=== PATIENT | female | born 1965 | race African-American/Black ===

== ENCOUNTER 2017-02-09 08:34 | Inpatient (IN) ==
[2017-02-09 09:12] LABS: URINE CULTURE PL NEEDED? NO
[2017-02-09 09:22] LABS: BILIRUBIN URINE NEGATIVE (NEGATIVE); BLOOD URINE NEGATIVE (NEGATIVE); CLARITY CLEAR (CLEAR); COLOR YELLOW; GLUCOSE URINE NEGATIVE (NEGATIVE); LEUKOCYTES URINE NEGATIVE (NEGATIVE); NITRITE URINE NEGATIVE (NEGATIVE); PROTEIN URINE NEGATIVE (NEGATIVE); SP GRAVITY URINE 1.015; UROBILINOGEN URINE NORMAL
[2017-02-09 09:29] LABS: URINE EPITHELIAL CELLS <10 /HPF (<10); URINE SOURCE CLEAN CATCH; URINE WBC <10 /HPF (<10)
[2017-02-09] MEDS ORDERED: APRESOLINE IV ONE (10:17)
[2017-02-09 10:39] LABS: BASO% 0.7 % (0.0-0.8); EOS# 0.17 X1000 (0.0-0.7); EOS% 3.1 % (0.0-10.0); HEMATOCRIT 37.3 % (37.0-47.0); IMM GRAN# 0.01 X1000 (0.0-0.04); IMM GRAN% 0.2 % (0.0-0.5); LYMPH# 1.47 X1000 (1.2-3.4); LYMPH% 27.2 % (20.5-51.1); MANUAL DIFF NEEDED? NO; MCHC 32.2 g/dL (33-37); MCV 74.7 FL (81-99); MONO# 0.58 X1000 (0.11-0.59); MONO% 10.7 % (1.7-9.3); MPV 9.8 FL (7.4-10.4); NEUT% 58.1 % (42.2-75.2); PLT 273 X1000 (130-400); RBC 4.99 XMIL (4.2-5.4)
--- NOTE | 2017-02-09 10:53 | Diag Imaging Result Doc PS360 ---
EXAM: CHEST-PORTABLE HISTORY: Cough TECHNIQUE: Portable COMPARISON: None. FINDINGS: The lungs are well expanded. The heart is enlarged. The vessels are not distended. No pneumonia. No pleural effusions identified. Moderate scoliosis. IMPRESSION: Cardiomegaly. No pneumonia. Electronically signed by Adam Partida 02/09/2017 10:51 AM
[2017-02-09 10:55] LABS: HEMOGLOBIN A1C 5.7 % (4.8-6.0)
[2017-02-09 10:56] LABS: AGAP 10; ALBUMIN 3.8 g/dL (3.5-5.0); ALKALINE PHOSPHATASE 124 U/L (32-104); BUN 11 mg/dL (8-22); CALCIUM 9.1 mg/dL (8.8-10.2); CHLORIDE 104 mmol/L (98-107); COSMO 275; GOT 17 U/L (10-30); GPT 16 U/L (10-36); POTASSIUM 3.3 mmol/L (3.5-5.1); SODIUM 138 mmol/L (136-145); TCO2 24 mmol/L (25-35); TOTAL PROTEIN 9.6 g/dL (6.3-8.3)
[2017-02-09] MEDS ORDERED: LABETALOL IV ONE (11:43)
--- NOTE | 2017-02-09 11:55 | PROVIDER DOCUMENTATION ---
This chart was entered by Lida Martel Scribe, acting as scribe for Kimi Bowers MD. HPI-General Adult - General Chief Complaint: Request RX Stated Complaint: DIZZINESS Time Seen by Provider: 02/09/17 09:51 Source: patient Allergies/Adverse Reactions: Patient Allergies Allergy/AdvReac Type Severity Reaction Status Date / Time No Known Allergies Allergy Verified 02/09/17 08:49 Home Medications: Home Medication List Medication Instructions Recorded Confirmed Last Taken Type Hydrochlorothiazide 25 mg DAILY 02/09/17 02/09/17 Unknown History - History of Present Illness -Gen Adult Nature of Presenting Problems: 51 year old F presents to the ED with a cc of out of blood pressure medication and urinary frequency. Pt states that she has been out of her medications x3 weeks. Location of Pain/Injury: reports: none Pain Radiation: reports: no radiation Quality of Pain: reports: none Severity: reports: mild Onset/Duration: reports: other (3 weeks) Timing: reports: still present Context/Activities at Onset: reports: none Modifying Factors: improves with: nothing Associated Symptoms: reports: genitourinary problems Similar Symptoms Previously?: No Recently seen or treated by another doctor?: No Review of Systems - Adult - REVIEW OF SYSTEMS - ADULT Constitutional: denies: chills, fever Eyes: reports: no symptoms reported Ears, Nose, Mouth & Throat: reports: no symptoms reported Cardiovascular: denies: chest pain, palpitations Respiratory: denies: cough, shortness of breath Gastrointestinal: denies: abdominal pain, nausea Genitourinary: reports: frequency. denies: dysuria Musculoskeletal: reports: no symptoms reported Integumentary: reports: no symptoms reported Neurological: reports: no symptoms reported Psychiatric: reports: no symptoms reported Endocrine: reports: no symptoms reported Hematologic/Lymphatic: reports: no symptoms reported Allergic/Immunologic: reports: no symptoms reported All Other Systems: Reviewed and Negative Past History - Adult - PAST MEDICAL HISTORY-ADULT Review of Records: reports: Nursing Assessment Review, Medications Reviewed Major Childhood Illnesses: reports: denies history Cardiovascular: reports: HTN Respiratory: reports: denies history Gastrointestinal: reports: denies history Obstetrical/Gynecological: reports: denies history Genitourinary: reports: denies history Musculoskeletal: reports: arthritis, chronic pain Neurological: reports: denies history Endocrine/Immune: reports: denies history Other Conditions: reports: denies history - PRIOR SURGERIES/PROCEDURES Surgical/Procedure History: reports: none - IMMUNIZATION STATUS Childhood Immunizations: See Nurse Assessment Flu Vaccine: See Nurse Assessment - FAMILY HISTORY Family History: reviewed, not pertinent - SOCIAL HISTORY Smoking: non-smoker Substance Use: none/never Alcohol Use Frequency: never Living Situation: family Physical Exam-General - PHYSICAL EXAM-ADULT Initial Vital Signs Reviewed: Yes - CONSTITUTIONAL General Appearance: appears well, alert, no apparent distress - RESPIRATORY Respiratory: chest non-tender, lungs clear, normal breath sounds - CARDIOVASCULAR Cardiovascular: normal peripheral pulses, regular rate, rhythm, no edema - GASTROINTESTINAL (ABDOMEN) Abdominal Exam: normal bowel sounds, non tender, soft - MUSCULOSKELETAL Extremity: normal inspection, no pedal edema - SKIN Integumentary: normal color, normal turgor, warm/dry - PSYCHIATRIC Psych/Mental Status: normal mood/affect, normal thought content, normal thought process, oriented x 3 Progress - PLAN OF CARE/RESULTS Progress/Plan/Lab Results: Vital Signs - 8 hr 02/09/17 08:44 Temperature 97 F L Pulse Rate 55 L Respiratory Rate 20 Blood Pressure 190/86 O2 Sat by Pulse Oximetry 98 Laboratory Results - last 24 hr 02/09/17 09:05 Urine Source CLEAN CATCH Urine Color YELLOW Urine Clarity CLEAR Urine pH 6.0 Ur Specific [place] 1.015 Urine Protein NEGATIVE Urine Ketones NEGATIVE Urine Blood NEGATIVE Urine Nitrite NEGATIVE Urine Bilirubin NEGATIVE Urine Urobilinogen NORMAL Urine Microscopic RBC Not Reportable Urine WBC NEGATIVE Urine Microscopic WBC <10 Ur Epithelial Cells <10 Urine Glucose NEGATIVE Orders Category Date Time Status urinalysis [URINALYSIS PL W/POSS RFLX CULT] [URINALYSIS Lab 02/09/17 09:05 Completed ] Stat Result Diagrams: 02/09/17 10:30 02/09/17 10:30 - REASSESSMENT Reassessment #1 Time Reassessed: 11:53 Status: worsening (Pt's BP increased after IV Hydralazine. IV Labetalol given.) - EKG 1 Time of EKG reading by physician:: 10:24 EKG Read and Signed by:: Kimi Bowers EKG Interpretation (*Must complete 3 of following elements*): Abnormal Rate: 58 Rhythm: sinus bradycardia QRS: LVH - XRAY 1 XRAY Study: Chest Impression: Normal (FINDINGS: The lungs are well expanded. The heart is enlarged. The vessels are not distended. No pneumonia. No pleural effusions identified. Moderate scoliosis. IMPRESSION: Cardiomegaly. No pneumonia- -Dr. Partida(radiologist)), Abnormal (Enlarged heart) - CONSULTS/PCP/HOSPITALIST Notification #1 *Consult/PCP/Hospitalist*: Dr. Angeles Time Discussed: 11:52 Consult Disposition: Will see in ED, Admit Departure - Departure Date of Disposition Decision: 02/09/17 Time of Disposition Decision: 11:52 DIAGNOSIS: Hypertensive urgency, Enlarged heart Disposition: ADMITTED INPATIENT 09 Certified Medical Emergency: Emergent Condition: Stable Referrals and Follow-Ups: None,PCP [Primary Care Provider] - - Critical Care Note This patient required my direct & personal management of CC.: Yes Attestation - Physician/ RADHA Attestation Patient care was provided by Advanced Practice Provider:: No The physician spent face to face time with patient:: Yes Advanced Practice Provider documentation review:: Supervising physician onsite and consulted in the evaluation and care of this patient. The physician did have a face to face encounter with the patient. This chart was documented by the indicated scribe, (Lida Martel Scribe) and accurately reflects the services I performed and decisions made by me, Kimi Bowers MD, as attested by the provider's signature.
[2017-02-09] MEDS ORDERED: KLOR-CON PO ONE (13:39)
--- NOTE | 2017-02-09 13:56 | EKG Report ---
Test Performed on : 02/09/2017 10:24:34 AM Test Reason : Re-Ordered Blood Pressure : / mmHG Vent. Rate : 058 BPM Atrial Rate : 058 BPM P-R Int : 158 ms QRS Dur : 096 ms QT Int : 420 ms P-R-T Axes : 023 -20 016 degrees QTc Int : 412 ms Sinus bradycardia. Minimal voltage criteria for LVH, may be normal variant Cannot rule out Anterior infarct , age undetermined Abnormal ECG No previous ECGs available Unconfirmed Result
--- NOTE | 2017-02-09 16:31 | HISTORY AND PHYSICAL ---
PRIMARY CARE PHYSICIAN: None. CHIEF COMPLAINT: Dizziness, lightheaded and states she has been out of her blood pressure medicine for 3 weeks. HISTORY OF PRESENTING ILLNESS: This is a 51-year-old female who presented to [facility] ER with complaints of dizziness and lightheadedness. States she has been out of her blood pressure medicine for approximately 3 weeks. States that she does not have a primary care physician but occasionally goes to see Dr. Zaman to get her hydrochlorothiazide. There was some confusion on that. I am not really sure if he is truly her primary care or not. When she arrived to the emergency room she had a blood pressure of 190/86, went up to 164/121, she received hydralazine 20 mg IV x1 and labetalol 20 mg IV x1 in the emergency room. She is being admitted for further evaluation and treatment. She denies any chest pain. She has some shortness of breath occasionally, and denies any blurred vision or headache at this time. PAST MEDICAL HISTORY: Hypertension and arthritis. PAST SURGICAL HISTORY: None. FAMILY HISTORY: Noncontributory. SOCIAL HISTORY: She currently lives with her family. Denies any tobacco, alcohol, or illicit drug use. ALLERGIES: She has no known drug allergies. HOME MEDICATIONS: She takes hydrochlorothiazide 25 mg p.o. daily. Again, she has been out of this medication for 3 weeks. LABORATORY DATA: Showed a white blood cell count of 5.40, hemoglobin of 12, hematocrit 37.3. Platelets 273,000. Sodium 138, potassium 3.3, chloride 104, CO2 24, BUN of 11, creatinine 0.7, glucose of 95. Hemoglobin A1c was 5.7. Troponin less than 0.010 with a proBNP of 45. Urinalysis was negative. Chest x-ray showed cardiomegaly and no pneumonia. REVIEW OF SYSTEMS: She denied any fever, chills, blurred vision. She was positive for dizziness and lightheadedness. Denied any chest pain, coughing, was positive for some mild shortness of breath. Denied any abdominal pain, constipation, diarrhea, burning or hurting with urination. PHYSICAL EXAMINATION: VITAL SIGNS: On arrival, she had a temperature of 97 degrees, a pulse of 55, respirations 20, blood pressure was 190/86. Currently, her blood pressure is down to 143/80, saturating 100% on room air. GENERAL: This is a 51-year-old female who is sitting on the side of the bed and answers questions appropriately. HEENT: Normocephalic and atraumatic. Pupils are equal, round, reactive to light. Extraocular movements are intact. The oropharynx and nares are clear. NECK: Supple. LUNGS: Clear to auscultation bilaterally with equal lung expansion and chest wall movement. HEART: Regular rate and rhythm. No murmurs, rubs, or gallops. ABDOMEN: Soft, nontender, nondistended. Bowel sounds are present x4 quadrants. EXTREMITIES: There is no clubbing, cyanosis, or edema. NEUROLOGICAL: The cranial nerves 2-12 appear grossly intact. ASSESSMENT: 1. Accelerated hypertension. 2. Some mild hypokalemia. 3. Medical noncompliance. 4. Arthritis. PLAN: She has been admitted to the medical unit at [place]. Placed on a healthy heart diet. We will start her on some Norvasc 5 mg p.o. daily. We will continue her hydrochlorothiazide and will supplement her potassium with 40 mEq x1 today and recheck a CBC, BMP in the a.m. Dictated by ELIE Patton for Keon Angeles MD cc: ELIE Patton MD
[2017-02-10 06:25] LABS: BASO% 0.5 % (0.0-0.8); EOS# 0.13 X1000 (0.0-0.7); EOS% 2.2 % (0.0-10.0); HEMATOCRIT 34.4 % (37.0-47.0); HEMOGLOBIN 11.1 g/dL (12.0-16.0); IMM GRAN# 0.01 X1000 (0.0-0.04); IMM GRAN% 0.2 % (0.0-0.5); LYMPH# 1.37 X1000 (1.2-3.4); LYMPH% 23.2 % (20.5-51.1); MANUAL DIFF NEEDED? YES; MCHC 32.3 g/dL (33-37); MCV 74.3 FL (81-99); MONO% 11.8 % (1.7-9.3); MPV 9.7 FL (7.4-10.4); NEUT% 62.1 % (42.2-75.2); PLT 260 X1000 (130-400); RBC 4.63 XMIL (4.2-5.4)
[2017-02-10 06:42] LABS: AGAP 9; BUN 15 mg/dL (8-22); CALCIUM 8.9 mg/dL (8.8-10.2); CHLORIDE 109 mmol/L (98-107); COSMO 282; POTASSIUM 3.5 mmol/L (3.5-5.1); SODIUM 141 mmol/L (136-145); TCO2 23 mmol/L (25-35)
[2017-02-10 08:00] LABS: EOS 2 % (1-10); LYMPHS 25 % (21-51); MONO 5 % (1-9)
[2017-02-10] MEDS ORDERED: HYDROCHLOROTHIAZIDE PO SCH (09:00)
[2017-02-10] MEDS ORDERED: NORVASC PO SCH (09:00)
[2017-02-10 11:04] VITALS: BP 159/80
--- NOTE | 2017-02-10 16:42 | DISCHARGE SUMMARY ---
ADMISSION DATE: 02/09/2017 DISCHARGE DATE: 02/10/2017 PRIMARY CARE PHYSICIAN: None. ADMISSION DIAGNOSES: 1. Accelerated hypertension. 2. Mild hypokalemia. 3. Medical noncompliance. 4. Arthritis. DISCHARGE DIAGNOSES: 1. Hypertension. 2. Hypokalemia, resolved. 3. Medical noncompliance. 4. Arthritis. SUMMARY OF FINDINGS: This is a 51-year-old, female, who presented to the ER with complaints of dizziness and lightheadedness, stating she has been out of her blood pressure medicine for about 3 weeks. States she did not have a primary care physician, but would occasionally see Dr. Zaman to get her hydrochlorothiazide. I am not really sure if he is or is not, but I am thinking he is not her primary. When she arrived to the emergency room, she had a blood pressure of 190/86. It went up to 164/121. She received IV antihypertensives in the emergency room. When she arrived to the floor, she denied any chest pain. Shortness of breath was occasional. Denied any blurred vision, headaches. We started her back on her hydrochlorothiazide 25 mg p.o. daily, and we added Norvasc 5 mg p.o. daily. Blood pressures have been 139/87, and it is felt that she can safely be discharged home today. We will give her information for the [facility] and the physician referral line to obtain a Primary Care. We will give her prescriptions for her discharge medications for amlodipine 5 mg p.o. daily, #30 with 3 refills, and hydrochlorothiazide 25 mg p.o. daily, #30 with 2 refills, and that will give her enough time to obtain a primary care physician. DISCHARGE TIME: 35 minutes. Dictated by ELIE Patton for Jaime Peralta MD cc: ELIE Patton MD pt examined, agree with above, encouraged compliance, and to set up with PCP RAVI NAIK
== END 2017-02-10 13:47 | disposition home or self-care (01) ==
LOC: P.MEDSURG 08:34 → P.ED 08:34 → SUATTDRO 12:13 → OBSVTOIN 12:13 → P.MEDSURG 12:20
PROVIDERS: ATTEND Internal Medicine